=== PATIENT | male | born 1975 | race Caucasian/White ===

== ENCOUNTER 2020-05-02 11:14 | Emergency (ER) | payer OTHER ==
[~2020-05-02] VITALS: Ht 182.9 cm; Wt 65.9 kg
[2020-05-02 11:26] VITALS: Ht 182.9 cm; Wt 65.9 kg
[2020-05-02] MEDS ORDERED: NAPROSYN500 MG PO (12:46)
[2020-05-02] MEDS ORDERED: CYCLOBENZAPRINE10 MG PO (12:46)
[2020-05-02 13:05] VITALS: BP 123/84
== END 2020-05-02 13:06 | disposition home or self-care (01) ==
LOC: D.ER 11:14
DX: S16.1XXA Strain of muscle, fascia and tendon at neck level, initial encounter (principal); S43.402A Unspecified sprain of left shoulder joint, initial encounter; V89.2XXA Person injured in unspecified motor-vehicle accident, traffic, initial encounter; Y93.9 Activity, unspecified; Y92.9 Unspecified place or not applicable